=== PATIENT | female | born 1960 | race Caucasian/White ===

== ENCOUNTER 2017-11-17 10:32 | Emergency (ER) | payer BC ==
[2017-11-17] MEDS ORDERED: Albuterol 0.083% 2.5 MG/3 ML Neb Soln NEB ONE (11:45)
--- NOTE | 2017-11-17 11:49 | EDM.PDOC ---
ED HPI GENERAL MEDICAL PROBLEM - General Chief Complaint: Respiratory Problem Stated Complaint: RESPIRATORY ISSUES Time Seen by Provider: 11/17/17 11:46 Source of Information: Reports: Patient History Limitations: Reports: No Limitations - History of Present Illness INITIAL COMMENTS - FREE TEXT/NARRATIVE: 57-year-old female presents for evaluation and treatment of a cough, runny nose and congestion. Reports that her symptoms started yesterday. Current symptoms include a cough, congestion, runny nose, sore throat, headaches and body aches. She states that she is coughing up a little bit of phlegm. She is also reporting wheezing and states she cannot lay back due to feeling short of breath and wheezing. She reports she is susceptible to pneumonia is concerned just about pneumonia. She also reports she has severe allergies. No fevers, chills, nausea, vomiting or diarrhea. She has been taking DayQuil, Mucinex, Aleve and Zicam without any symptom relief. She denies any ill contacts but she works with the public. No fluid shot this season. Back Pain Score (Numeric/FACES): 3 - Related Data Allergies Allergy/AdvReac Type Severity Reaction Status Date / Time No Known Allergies Allergy Verified 11/17/17 11:00 Home Meds: Home Meds Albuterol [IJD: Ventolin HFA] 2 puff INH .TWICE DAILY #18 gm 11/17/17 [Rx] Benzonatate [Tessalon Perles] 100 mg PO TID PRN #15 cap 11/17/17 [Rx] Codeine/Promethazine [Phenergan with Codeine] 5 ml PO Q4HR PRN #120 ml 11/17/17 [Rx] Levothyroxine [Levothroid] 1 mcg PO DAILY 11/17/17 [History] Oseltamivir [Tamiflu] 75 mg PO BID #10 cap 11/17/17 [Rx] atorvaSTATin [Lipitor] 10 mg PO BEDTIME 11/17/17 [History] traZODone 150 mg PO BEDTIME 11/17/17 [History] Past Medical History Cardiovascular History: Reports: High Cholesterol Genitourinary History: Reports: Other (See Below) Other Genitourinary History: bladder surgery x 3 [employer] History: Reports: Other (See Below) Other OB/BYN History: novasure; lump removed from breast and benign Psychiatric History: Reports: Anxiety, Depression Social & Family History - Tobacco Use Smoking Status *Q: Never Smoker - Caffeine Use Caffeine Use: Reports: Coffee, Tea - Recreational Drug Use Recreational Drug Use: No ED ROS GENERAL - Review of Systems Review Of Systems: See Below Constitutional: Reports: Other (bodyaches). Denies: Fever, Chills HEENT: Reports: Throat Pain. Denies: Ear Pain Respiratory: Reports: Wheezing, Cough, Sputum GI/Abdominal: Denies: Abdominal Pain, Diarrhea, Nausea, Vomiting Neurological: Reports: Headache ED EXAM, GENERAL - Physical Exam Exam: See Below Exam Limited By: No Limitations General Appearance: Alert, WD/WN, No Apparent Distress Ears: Normal External Exam, Normal Canal, Hearing Grossly Normal, Normal TMs Nose: Normal Inspection Throat/Mouth: Normal Inspection, Normal Lips, Normal Voice, No Airway Compromise Respiratory/Chest: No Respiratory Distress, Lungs Clear, Normal Breath Sounds Cardiovascular: Normal Peripheral Pulses, Regular Rate, Rhythm, No Murmur Neurological: Alert, Oriented, Normal Cognition Psychiatric: Normal Affect, Normal Mood Skin Exam: Warm, Dry, Normal Color Course - Vital Signs Last Recorded V/S: Last Vital Signs Temp 37.5 C 11/17/17 10:56 Pulse 93 11/17/17 10:56 Resp 20 11/17/17 10:56 BP 143/85 H 11/17/17 10:56 Pulse Ox 96 11/17/17 11:46 - Orders/Labs/Meds Orders: Active Orders 24 hr Category Date Time Status RT Aerosol Therapy [RC] ASDIRECTED Care 11/17/17 11:46 Active Meds: Medications Discontinued Medications Generic Name Dose Route Start Last Admin Trade Name Torrie PRN Reason Stop Dose Admin Albuterol 2.5 mg 11/17/17 11:45 11/17/17 11:54 Proventil Neb Soln NEB 11/17/17 11:46 2.5 mg ONETIME ONE Administration - Radiology Interpretation Free Text/Narrative:: Chest: 2 views of the chest were obtained. Comparison: No prior chest x-ray. Heart size and mediastinum are normal. Lungs are clear. Bony structures are within normal limits for the patient's age. Impression: 1. Nothing acute is identified on 2 view chest x-ray. - Re-Assessments/Exams Free Text/Narrative Re-Assessment/Exam: 11/17/17 13:02 influenza returned positive for type B. I reviewed the lab and chest x-ray results with the patient. She is with an window to start Tamiflu. She would like to start this. We will discharge her home. Discharge instructions as documented. Departure - Departure Time of Disposition: 13:06 Disposition: Home, Self-Care 01 Condition: Fair Clinical Impression: Influenza B - Discharge Information Prescriptions: Codeine/Promethazine [Phenergan with Codeine] 5 ml PO Q4HR PRN #120 ml PRN Reason: Cough Albuterol [IJD: Ventolin HFA] 2 puff INH .TWICE DAILY #18 gm Benzonatate [Tessalon Perles] 100 mg PO TID PRN #15 cap PRN Reason: Cough Oseltamivir [Tamiflu] 75 mg PO BID #10 cap Instructions: Influenza, Adult, [id number] Referrals: Ramon Tidwell MD [Primary Care Provider] - Forms: ED Department Discharge, ED Return to Work/School Form Additional Instructions: Rest, fluids, Tylenol Motrin as needed for headaches and pain relief. you are contagious 1 day before your symptoms started and up to a week afterwards. Tamiflu 1 By mouth twice a day for 5 days. Albuterol inhaler 1-2 puffs every 4-6 hours as needed for shortness of breath. Tessalon Perles 1 tab 3 times a day as needed for cough. Cough syrup with codeine 5 mL every 4-6 hours as needed for cough. Do not drive or operate machinery within 12 hours of using the cough syrup with codeine. This can be habit-forming, I recommend you take as little as needed to control your cough. [facility] [place] [facility] open from 1-3 today. Call [phone] to have them fill your prescriptions. Follow-up with primary care provider as needed. Please return to ER if your symptoms change or worsen. - My Orders Last 24 Hours: My Active Orders 11/17/17 11:46 RT Aerosol Therapy [RC] ASDIRECTED - Assessment/Plan Last 24 Hours: My Active Orders 11/17/17 11:46 RT Aerosol Therapy [RC] ASDIRECTED
--- NOTE | 2017-11-17 13:54 | CR ---
Chest: Two views of the chest were obtained. Comparison: No prior chest x-ray. Heart size and mediastinum are normal. Lungs are clear. Bony structures are within normal limits for the patient's age. Impression: 1. Nothing acute is identified on two-view chest x-ray. Diagnostic code #1
== END 2017-11-17 13:30 | disposition home or self-care (01) ==
LOC: JD.ED 10:32
DX: J10.1 Influenza due to other identified influenza virus with other respiratory manifestations (principal); E78.00 Pure hypercholesterolemia, unspecified; Z79.899 Other long term (current) drug therapy
CPT/HCPCS: 71046; 71046-26; 87804; 94640; 99284; 99284-25